=== PATIENT | male | born 1975 ===

== ENCOUNTER → 2018-09-26 10:04 | Day surgery (SDC) | payer BC, OTHER ==
[~2018-09-26 10:04] MED LIST: Buffered Lidocaine 0.9% SYRIN* 5 ML/SYR SYRINGE INTRADERM ONE; Lactated Ringers 1000 ML Bag* 1,000 ML IV SCH; Lidocaine 1%* 5 ML VIAL ONE; Naloxone* 0.4 MG/ML 1 ML VIAL IV PRN; Propofol* 500 MG/50 ML BTL ONE
[2018-09-26 12:59] VITALS: BP 115/77
--- NOTE | 2018-09-26 23:50 | PRO ---
CC: Primary care physician (?)* DATE OF PROCEDURE: 09/26/18 [facility] INDICATION FOR PROCEDURE: Ulcerative pancolitis surveillance over 8 years of disease. PROCEDURE PERFORMED: Complete colonoscopy to the terminal ileum with biopsies. MEDICATIONS: Please see the anesthesia record. DESCRIPTION OF PROCEDURE: After the colonoscopy procedure including the risks, benefits, and alternatives with the risks not limited to perforation, surgery, missed lesions, and/or were explained to the patient, written informed consent was obtained. IV medication was given and a rectal exam was performed. The rectal exam was unremarkable. The adult Olympus colonoscope was inserted into the patient's rectum and advanced very carefully through the entirety of the colon into the cecal base. The cecal base was normal in appearance with the exception of 2 small diminutive polyps, 0.3 cm, around the appendiceal orifice. These were removed with biopsy polypectomy in entirety. The terminal ileal valve was then identified and intubated x10 to 15 cm; this was normal in appearance. I did take biopsies to rule out inflammatory bowel disease. The scope was returned to the cecum. The cecum was at 80 cm. I did take biopsies of this area. Over the next 10 minutes, I carefully examined the mucosa. On withdrawal, no masses or lesions were seen. I did take biopsies every 10 cm at 70, 60, 50, 40, 30, and 20 cm, respectively and finally, in the rectum. On retroflexion, the views were grossly normal. The preparation was good. The scope was removed from the patient. He tolerated the procedure well. He returned to the recovery room in stable condition. IMPRESSION: 1. Complete colonoscopy to the terminal ileum with biopsies. 2. Biopsy polypectomy, 0.3 cm diminutive polyps, periappendiceal. 3. Ulcerative pancolitis, appearing to be macroscopically in remission. 4. Biopsies taken for surveillance as above. RECOMMENDATIONS: Continue with Maria Esther at this point. Repeat colonoscopy in 2 years on this dysplasia or adenoma identified on biopsy. [id number]/[facility] #: [id number] ANIVAL
== END | disposition home or self-care (01) ==
LOC: OR 10:04
PROVIDERS: ATTEND Internal Medicine Gastroenterology
DX: K51.90 Ulcerative colitis, unspecified, without complications (principal); D12.0 Benign neoplasm of cecum; F41.9 Anxiety disorder, unspecified
CPT/HCPCS: 88305; J2704

== ENCOUNTER 2018-12-13 12:35 | Emergency (ER) | payer BC, OTHER ==
[2018-12-13 13:12] VITALS: BP 124/82
--- NOTE | 2018-12-13 13:38 | UC ---
Bite Injury/Animal HPI - HPI Summary HPI Summary: 43 yo with Crohn's bitten by his dog trying to stop the dog from fighting with another dog 24 plus hours ago. Complains of significant pain over the dorsum of the right had (patient is right handed) with redness. Unclear tetanus status. Obvious swelling, erythema limited to dorsum of right hand with 2 1 cm and one abrasion type bite sites. Pain with extension at wrist although he can do extend. 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 Pt here with 4 puncture wounds on R hand - R hand is swollen, painful. Worried about possible broken bones in hand. - History of Current Complaint Chief Complaint: UCBiteInjury Stated Complaint: dog bite Time Seen by Provider: 12/13/18 12:55 Pain Intensity: 6 - Allergies/Home Medications Allergies/Adverse Reactions: Allergies Allergy/AdvReac Type Severity Reaction Status Date / Time sesame seed Allergy Severe itchy eyes Verified 12/13/18 13:03 NSAIDS (Non-Steroidal Allergy See Comment Verified 12/13/18 13:03 Anti-Inflamma PMH/Surg Hx/FS Hx/Imm Hx - Additional Past Medical History Additional PMH: PMH: CROHN'S FAMILY HISTORY: cvd, cancer SOCIAL: lives with family; dog as pet; teaches at [employer]. Recently moved to [place]. Meds and allergies: allergic to NSAIDS; no medication allergies. Previously Healthy: Yes GI/ History: Other - Crohn's - Surgical History Surgical History: Yes Surgery Procedure, Year, and Place: colonoscopies w/anesthesia - Social History Alcohol Use: Occasionally Substance Use Type: None Smoking Status (MU): Never Smoked Tobacco Review of Systems All Other Systems Reviewed And Are Negative: Yes Constitutional: Negative: Fever Skin: Positive: Other - swelling, redness right wrist, dorsum Respiratory: Positive: Negative Cardiovascular: Positive: Negative Gastrointestinal: Positive: Negative Genitourinary: Positive: Negative Is Patient Immunocompromised?: No Physical Exam Triage Information Reviewed: Yes Appearance: Pain Distress - right hand pain Vital Signs: Initial Vital Signs Temp 97.7 F 12/13/18 13:04 Pulse 69 12/13/18 13:04 Resp 18 12/13/18 13:04 BP 124/82 12/13/18 13:04 Pulse Ox 97 12/13/18 13:04 Vital Signs Reviewed: Yes Eye Exam: Normal ENT Exam: Normal Dental Exam: Normal Neck exam: Normal Neck: Positive: 1 Respiratory Exam: Normal Respiratory: Positive: Chest non-tender, Lungs clear, Normal breath sounds Cardiovascular Exam: Normal Cardiovascular: Positive: RRR, No Murmur, Pulses Normal Abdominal Exam: Normal Abdomen Description: Positive: Nontender, No Organomegaly, Soft Musculoskeletal Exam: Normal Musculoskeletal: Positive: ROM Intact - RESTRICTED EXTENSION OF RIGHT WRIST BECAUSE OF PAIN., Edema @ - DORSUM, RIGHT WRIST Neurological Exam: Normal Psychological Exam: Normal Skin Exam: Normal Skin: Positive: Other - ERYTHEMA, SWELLING DORSUM OF RIGHT WRIST Bite Injury Course/Dx - Course Course Of Treatment: 43 yo with Crohn's bitten by his dog trying to stop the dog from fighting with another dog 24 plus hours ago. Complains of significant pain over the dorsum of the right had (patient is right handed) with redness. Unclear tetanus status. Obvious swelling, erythema limited to dorsum of right hand with 2 1 cm and one abrasion type bite sites. Pain with extension at wrist although he can do extend. Remainder of physical examination unremarkable. No extension of redness above right wrist. Tender to touch; warm. X ray, no fractures. My dx is cellulitis because of dog bite right hand. I gave the patient one gram of ceftriaxone IM and will start the patient on Augmentin. Patient will follow up tomorrow. Or will go to ED if condition/ pain/swelling/fever/redness increase. I am concerned about the location and kind of puncture wound causing this condition. Patient will be followed closely. Patient will attempt to do continuous soaks, warm, to hand. Medications reviewed. Hypertension status reviewed. Patient is urgent/ emergent and in pain. Slightly elevated BP. X RAY READING: #. Soft tissue swelling over the dorsal aspect of the wrist and hand most prominent at. the level of the metacarpals and metacarpal phalangeal joints. #. No subcutaneous emphysema, radiopaque foreign body, fracture, or articular. malalignment evident. #. Small bone islands noted at the distal ulna, first proximal phalanx , and fourth. metacarpal without concern. - Differential Dx/Diagnosis Differential Diagnosis/HQI/PQRI: Cellulitis, Compartment Syndrome, Puncture Provider Diagnosis: Dog bite, Cellulitis Discharge - Sign-Out/Discharge Documenting (check all that apply): Patient Departure All imaging exams completed and their final reports reviewed: Yes - Discharge Plan Condition: Stable Disposition: HOME Prescriptions: Amoxicillin/Clavulanate TAB* [Augmentin TAB 875*] 875 mg PO BID #20 tab MDD 2 Patient Education Materials: Animal Bite (ED), Cellulitis (DC) Referrals: No Primary Care Phys,NOPCP [Primary Care Provider] - Additional Instructions: WE DISCUSSED: you have a skin infection from the dog bite; a hand infection must be watched closely; you have been given an injection of ceftriaxone and I will give you a prescription of Augmentin. WE WANT TO MAKE SURE THIS IS IMPROVING. Return here tomorrow for recheck. Go to ED if your condition gets worse. Follow up with your doctor next week. PLEASE SEEK CARE AT THE EMERGENCY DEPARTMENT IF SYMPTOMS WORSEN OR IF NEW SYMPTOMS DEVELOP. We are open from 7 a.m. to 10 p.m. Call us with any questions or concerns. YOUR DIAGNOSIS IS: CELLULITIS FROM DOG BITE OF YOUR RIGHT HAND YOUR PRESCRIPTION RECOMMENDATION IS: augmentin, 875 mg, twice a day for 10 days OTHER INSTRUCTIONS: Soak for 10 minutes every 2 hours in warm salt water; elevate; recheck tomorrow. Hypertension Discharge Instructions: Your blood pressure reading today was slightly elevated. Follow-up with your primary care provider within 4 weeks for blood pressure check and appropriate recommendations and treatment, as needed. For pain: acetaminophen (Tylenol and other brand names) 500mg - 1000mg every 8 hours. Maximum is 3 doses a day. If this dosage is required for more than 5 days , you should re-check with your doctor. The combination of these two over-the- counter medications can be more effective than each one taken alone. Please check with the pharmacist if you have questions about your allergies to these medications. - Billing Disposition and Condition Condition: STABLE Disposition: Home
[2018-12-13] MEDS ORDERED: cefTRIAXone VIAL(*) 1,000 MG VIAL IM ONE (13:59)
[2018-12-13] MEDS ORDERED: Tetan/Diph/Pertus SYR(Tdap)* 0.5 ML SYR(BOOSTRIX) use SYR IM ONE (14:07)
[2018-12-13] MEDS ORDERED: Lidocaine 1% INJ* 10 MG/ML 30 ML SDV INJ ONE (14:08)
[2018-12-13] MEDS ORDERED: Lidocaine 1%* 5 ML VIAL ONE (14:19)
[2018-12-13] MEDS ORDERED: Lidocaine 1%* 5 ML VIAL INJ ONE (14:35)
== END 2018-12-13 15:00 | disposition home or self-care (01) ==
LOC: UCEAST 12:35
DX: S61.431A Puncture wound without foreign body of right hand, initial encounter (principal); L03.113 Cellulitis of right upper limb; W54.0XXA Bitten by dog, initial encounter; Y92.9 Unspecified place or not applicable; Z88.6 Allergy status to analgesic agent; Z91.048 Other nonmedicinal substance allergy status
CPT/HCPCS: 90471; 90715; 96372; 99212; G0463; J0696

== ENCOUNTER 2018-12-14 19:00 | Emergency (ER) | payer BC, OTHER ==
--- NOTE | 2018-12-14 19:30 | ED ---
Skin Complaint - HPI Summary HPI Summary: The patient is a 43 year old male who is presenting to the [facility] with a chief complaint of a dog bite. The onset of the dog bite was Saturday night on 12/12/18. He denies any reports of fever, nausea, vomiting. When describing his current condition, the patient states that the pain is dull, and aching as well as improved since onset. Patient does report swelling, reduced movement, warmness, redness and and bite rush on the right hand which was reportedly bleeding at onset. The patient was attempting to calm a dog fight and the injury had occurred during that attempt. After the injury, the patient was seen in the [facility] where he received an IM abx and po abx that was stated to be Augmentin. Patient also received a sling which he was not wearing at the time of the initial exam. Symptoms are aggravated by nothing and alleviated by nothing. The pain is rated to be a 1/10 in severity. - History of Current Complaint Chief Complaint: EDExtremityUpper Time Seen by Provider: 12/14/18 19:17 Stated Complaint: "DOG BITE THAT'S GOTTEN WORSE AFTER UC " PER PT Hx Obtained From: Patient Onset/Duration: Started Days Ago Skin Exposure Onset/Duration: Days Ago Timing: Constant Onset Severity: Moderate Current Severity: Mild Pain Intensity: 1 Pain Scale Used: 0-10 Numeric Skin Location: Hand - Right Character: Swelling, Pain, Redness Aggravating Symptom(s): Nothing Alleviating Symptom(s): Nothing - Allergy/Home Medications Allergies/Adverse Reactions: Allergies Allergy/AdvReac Type Severity Reaction Status Date / Time sesame seed Allergy Severe itchy eyes Verified 12/14/18 19:06 NSAIDS (Non-Steroidal Allergy See Comment Verified 12/14/18 19:06 Anti-Inflamma PMH/Surg Hx/FS Hx/Imm Hx GI History: Reports: Hx Crohn's Disease Sensory History: Denies: Hx Contacts or Glasses, Hx Hearing Aid Opthamlomology History: Denies: Hx Contacts or Glasses Psychiatric History: Reports: Hx Anxiety - Cancer History Hx Chemotherapy: No - Surgical History Surgery Procedure, Year, and Place: colonoscopies w/anesthesia Hx Anesthesia Reactions: No Infectious Disease History: No Infectious Disease History: Denies: Traveled Outside the [place] in Last 30 Days - Family History Known Family History: Positive: Non-Contributory Family History: Negative FHx of IBD and CRC - Social History Occupation: Employed Full-time Lives: With Family Alcohol Use: Occasionally Substance Use Type: Reports: None Smoking Status (MU): Never Smoked Tobacco Review of Systems Negative: Fever Eyes: Negative ENT: Negative Cardiovascular: Negative Negative: Vomiting, Nausea Genitourinary: Negative Musculoskeletal: Other - Right hand pain Positive: Edema - Right hand/wrist swelling Skin: Other - Bite rush at right hand Neurological: Other - Reduced movement of the right hand/wrist Psychological: Normal All Other Systems Reviewed And Are Negative: Yes Physical Exam - Summary Physical Exam Summary: VITAL SIGNS: Reviewed. GENERAL: Patient is a well-developed and nourished (MALE) who is lying comfortable in the stretcher. Patient is not in any acute respiratory distress. HEAD AND FACE: No signs of trauma. No ecchymosis, hematomas or skull depressions. No sinus tenderness. EYES: PERRLA, EOMI x 2, No injected conjunctiva, no nystagmus. EARS: Hearing grossly intact. Ear canals and tympanic membranes are within normal limits. MOUTH: Oropharynx within normal limits. NECK: Supple, trachea is midline, no adenopathy, no JVD, no carotid bruit, no c- spine tenderness, neck with full ROM. CHEST: Symmetric, no tenderness at palpation LUNGS: Clear to auscultation bilaterally. No wheezing or crackles. CVS: Regular rate and rhythm, S1 and S2 present, no murmurs or gallops appreciated. ABDOMEN: Soft, non-tender. No signs of distention. No rebound no guarding, and no masses palpated. Bowel sounds are normal. EXTREMITIES: FROM in all major joints, no edema, no cyanosis or clubbing. NEURO: Alert and oriented x 3. No acute neurological deficits. Speech is normal and follows commands. Neurovascular exam is intact SKIN: Dry and warm Right Hand Exam: Swelling and mild tenderness of dorsum of the right hand, Which is not tense; No pain with passive extension of the any of the digits of the right hand. Neuro vascular exam is intact. Triage Information Reviewed: Yes Vital Signs On Initial Exam: Initial Vitals Temp Pulse Resp BP Pulse Ox 97.5 F 76 16 117/86 98 12/14/18 19:03 12/14/18 19:03 12/14/18 19:03 12/14/18 19:03 12/14/18 19:03 Vital Signs Reviewed: Yes Diagnostics - Vital Signs Vital Signs Temp Pulse Resp BP Pulse Ox 12/14/18 19:03 97.5 F 76 16 117/86 98 - Laboratory Lab Statement: Any lab studies that have been ordered have been reviewed, and results considered in the medical decision making process. Course/Dx - Course Course Of Treatment: The patient is a 43 year old male who is presenting to the [facility] with a chief complaint of a dog bite on his right hand. The patient denied symptoms such as fevers, nausea and vomiting. He is also receiving augementin po and has taken 3 so far. He has received a sling but has not worn it today. We recommended to him that the sling must be worn regularly in order to reduce swelling. When analyzing the patient's right hand in the physcial we found that the patient was able to move digits without pain. The patient later stated in the history that the wound seems well compared to first onset. We discussed a follow up with an orthopedist tomorrow and the patient agrees. The patient will be discharged home with a diagnosis of right hand cellulitis. Other recommendations include tylenol/motrin for pain, heating pads or warm water, and continue Augementin treatment. - Diagnoses Provider Diagnoses: Cellulitis of right hand Discharge - Sign-Out/Discharge Documenting (check all that apply): Patient Departure - Discharge Home Patient Received Moderate/Deep Sedation with Procedure: No - Discharge Plan Condition: Stable Disposition: HOME Patient Education Materials: Cellulitis (ED) Referrals: Colby Goodwin MD [Medical Doctor] - Additional Instructions: We recommend that the patient continue augmentin treatment as prescribed. Patient should use sling to provide elevation for the wound regularly to decrease swelling. Take Tylenol/Motrin as needed for pain along with heating pads for the area of the wound. Follow up with Orthopedic physician Dr. Goodwin as referred to in the Discharge instructions by tomorrow. RETURN TO THE EMERGENCY DEPARTMENT FOR CHANGING OR WORSENING SYMPTOMS. FOLLOW UP WITH PCP IN 1-2 DAYS. - Billing Disposition and Condition Condition: STABLE Disposition: Home - Attestation Statements Document Initiated by Scribe: Yes Documenting Scribe: Camron Paz Provider For Whom Scribe is Documenting (Include Credential): Dr. Kristy Faustibterry Attestation: Camron Akbar, scribed for Dr. Amanda Roy on 12/14/18 at 2004. Scribe Documentation Reviewed: Yes Provider Attestation: The documentation as recorded by the forrestibCamron stewart accurately reflects the service I personally performed and the decisions made by me, Dr. Amanda Roy Status of Scribe Document: Viewed
[2018-12-14 19:36] VITALS: BP 122/82
== END 2018-12-14 19:30 | disposition home or self-care (01) ==
LOC: ED 19:00
DX: S61.451A Open bite of right hand, initial encounter (principal); W54.0XXA Bitten by dog, initial encounter; Y92.9 Unspecified place or not applicable; L03.113 Cellulitis of right upper limb; F41.9 Anxiety disorder, unspecified; K50.90 Crohn's disease, unspecified, without complications
CPT/HCPCS: 99282